=== PATIENT | male | born 1970 | race Caucasian/White ===

== ENCOUNTER 2017-05-29 10:09 | Inpatient (IN) | payer MEDICAID ==
[2017-05-28 11:42] LABS: BASOPHILS % (AUTO) 0.5 % (0-1); EOSINOPHILS # (AUTO) 0.2 X10'3 (0-0.9); EOSINOPHILS % (AUTO) 3.9 % (0-6); LYMPHOCYTES # (AUTO) 1.5 X10'3 (1.1-4.8); LYMPHOCYTES % (AUTO) 25.8 % (21-51); MEAN CORPUSCULAR HEMOGLOBIN 35.2 PG (27.0-31.0); MEAN CORPUSCULAR HGB CONC 35.6 % (33.0-36.5); MEAN CORPUSCULAR VOLUME 98.9 FL (78-98); MEAN PLATELET VOLUME 8.4 FL (7.4-10.4); MONOCYTES # (AUTO) 0.4 X10'3 (0-0.9); MONOCYTES % (AUTO) 6.7 % (2-12); NEUTROPHILS # (AUTO) 3.7 X10'3 (1.8-7.7); NEUTROPHILS % (AUTO) 63.1 % (42-75); PRE OP HEMATOCRIT 41.4 % (42.0-52.0); PRE OP HEMOGLOBIN 14.7 g/dL (14.0-17.9); PRE OP PLATELET COUNT 225 X10'3 (140-440); RED BLOOD COUNT 4.19 X10'6 (4.70-6.10); RED CELL DISTRIBUTION WIDTH 12.9 % (11.5-14.5)
[2017-05-28 11:53] LABS: PRE OP INR 0.9 INR; PRE OP PROTIME 9.8 SECONDS (9.0-12.0)
[2017-05-28 11:54] LABS: CLARITY,URINE SLIGHTLY CLOUDY (Clear); COLOR,URINE YELLOW (Yellow); GLUCOSE, URINE NEGATIVE (Neg); KETONES,URINE NEGATIVE (Neg); LEUKOCYTE ESTERASE ,URINE NEGATIVE (Neg); NITRITES, URINE NEGATIVE (Neg); OCCULT BLOOD,URINE NEGATIVE (Neg); PH,URINE 5.5 (4.8-8.0); PROTEIN,URINE NEGATIVE (Neg); UROBILINOGEN,URINE 0.2 E.U/dL (0.2-1.0)
[2017-05-28 11:55] LABS: ALBUMIN 3.9 G/DL (3.4-5.0); ALBUMIN/GLOBULIN RATIO 0.9 (1.1-1.5); ALKALINE PHOSPHATASE 104 IU/L (46-116); BLOOD UREA NITROGEN 10 MG/DL (7-18); BUN/CREATININE RATIO 9.3 (5.4-32.0); CALCIUM 9.5 MG/DL (8.5-10.1); CHLORIDE 102 MMOL/L (99-107); CREATININE 1.08 MG/DL (0.60-1.10); PRE OP ANION GAP 12 (8-16); PRE OP AST 52 U/L (10-37); PRE OP BILIRUB, TOTAL 0.2 MG/DL (0.0-1.0); PRE OP GLUCOSE 98 MG/DL (70-104); PRE OP POTASSIUM 4.4 MMOL/L (3.4-5.1); PRE OP SODIUM 139 MMOL/L (135-145); TOTAL CARBON DIOXIDE 25.4 MMOL/L (24-32); TOTAL PROTEIN 8.1 G/DL (6.4-8.2); eGFR 73 ML/MIN
[2017-05-28 11:57] LABS: UA COLLECTION TYPE CLN CATCH MIDSTREAM
[2017-05-28 11:59] LABS: PRE OP ALT 110 U/L (30-65)
[2017-05-28 12:02] LABS: BACTERIA,URINE NONE SEEN /HPF (Neg); HYALINE CASTS 0-3 /LPF (NEGATIVE); MUCUS STRANDS MODERATE /LPF (Neg); RBC,URINE 0-2 /HPF (0-2); SQUAMOUS EPITHELIAL CELL,UR FEW /LPF (FEW); WBC,URINE 0-4 /HPF (0-4)
[2017-05-28 12:03] LABS: SPERM FEW /HPF (NEGATIVE)
[2017-05-29] VITALS (11 sets, daily range): BP systolic 118–153; BP diastolic 55–98
[~2017-05-29] VITALS: Ht 190.5 cm; Wt 117.9 kg
[~2017-05-29 10:09] MED LIST: DULO60CA64 PO; HYDR-3972 PO; NORMAL SALINE IV ONE; OMEP20CA10 PO; TRANEXAMIC ACID IV ONE; VANCOMYCIN INJ 1000 MG in NORMAL SALINE 250ml IV.SOLN IV ONE; ceFAZolin inj. 2,000 MG in dextrose 5%-water 100 ML IV ONE; famotidine 20mg tablet PO ONE; ringers solution, lacted 1,000 ML IV SCH
[2017-05-29] MEDS ORDERED: LIDOcaine 1% (10mg/ml) 2ml vial ONE (11:24)
[2017-05-29] MEDS ORDERED: ringers solution, lacted 1,000 ML IV SCH (13:41)
[2017-05-29] MEDS ORDERED: proCHLORperazine 10 MG/2 ml inj IV PRN (13:45)
[2017-05-29] MEDS ORDERED: meperidine/PF 50mg/ml syringe IV PRN ×3 (13:45)
[2017-05-29] MEDS ORDERED: morphine 4 MG/ML inj SYRINge IV PRN ×2 (13:45)
[2017-05-29] MEDS ORDERED: ondansetron/PF 4mg/2ml inj IV PRN ×3 (13:45→19:55)
[2017-05-29] MEDS ORDERED: HYDROcodone/acetaminophen 10/325mg tab PO ONE (13:50)
[2017-05-29] MEDS ORDERED: ROPIVAcaine 0.5% (5mg/ml) 30ml vial ONE ×2 (13:51→13:57)
[2017-05-29] MEDS ORDERED: ketorolac trometh. 30mg/ml inj. ONE (13:51)
[2017-05-29] MEDS ORDERED: vancomycin 1,000mg inj ONE (14:43)
[2017-05-29] MEDS ORDERED: MIDAZolam 1mg/ml 10ml vial ONE (16:08)
[2017-05-29] MEDS ORDERED: fentaNYL/PF 50MCG/1 ML 2ML syringe ONE (16:08)
[2017-05-29] MEDS ORDERED: morphine /PF 1mg/ml 10ml inj. ONE (16:13)
[2017-05-29] MEDS ORDERED: naloxone 2mg/2ml inj 2 MG in normal saline 500ml IV soln 500 ML IV PRN (17:32)
[2017-05-29] MEDS ORDERED: diphenhydrAMINE 50 mg/ml inj IV PRN (17:35)
[2017-05-29] MEDS ORDERED: propofol inj 20 ML IV ONE ×2 (18:09)
[2017-05-29] MEDS ORDERED: diphenhydrAMINE 50 mg/ml inj ONE (18:41)
[2017-05-29] MEDS ORDERED: acetaminophen 325mg tablet PO PRN (19:55)
[2017-05-29] MEDS ORDERED: bisacodyl 10mg suppository rectal RC PRN (19:55)
[2017-05-29] MEDS ORDERED: diphenhydrAMINE 25mg capsule PO PRN ×2 (19:55)
[2017-05-29] MEDS ORDERED: HYDROmorphone inj. 0.5 MG/0.5 ML DISP.SYRIN IV PRN (19:55)
[2017-05-29] MEDS ORDERED: magnesium hydroxide 30ml (MOM) UD suspension PO PRN (19:55)
[2017-05-29] MEDS ORDERED: MIDAZolam 5mg/5ml vial ONE (19:56)
[2017-05-29] MEDS ORDERED: vancomycin/NS 1 GM ADD-VANTAGE 250 ML IV SCH (20:00)
[2017-05-29] MEDS: sennosides 8.6mg tablet PO SCH (21:00)
[2017-05-29] MEDS: acetaminophen 325mg tablet PO SCH (21:27)
[2017-05-29] MEDS: gabapentin 300mg capsule PO SCH (21:27)
[2017-05-29] MEDS: ketorolac tromethamine 15mg/ml inj. IV SCH (21:28)
[2017-05-29] MEDS ORDERED: NORMAL SALINE IV ONE (23:00)
[2017-05-29] MEDS ORDERED: TRANEXAMIC ACID IV ONE (23:00)
[2017-05-29] MEDS: oxyCODONE IR 5mg (immed. release) tablet PO PRN (23:17)
[2017-05-30] VITALS (8 sets, daily range): BP systolic 116–144; BP diastolic 67–95
[2017-05-30] MEDS: potassium cl 20mEq in 1/2 NS 1,000 ML IV SCH ×4 (00:07→19:35)
[2017-05-30] MEDS: ceFAZolin 1GM/D5W- ADD-VANTAGE 50 ML IV SCH ×2 (00:07→09:16)
[2017-05-30] MEDS: ketorolac tromethamine 15mg/ml inj. IV SCH ×4 (02:10→20:36)
[2017-05-30] MEDS: acetaminophen 325mg tablet PO SCH ×4 (02:11→20:37)
[2017-05-30] MEDS: oxyCODONE IR 5mg (immed. release) tablet PO PRN ×6 (05:02→22:25)
[2017-05-30 06:25] LABS: ANION GAP 8 (8-16); CHLORIDE 103 MMOL/L (99-107); POTASSIUM 4.7 MMOL/L (3.5-5.1); SODIUM 137 MMOL/L (135-145); TOTAL CARBON DIOXIDE 25.9 MMOL/L (24-32)
[2017-05-30 06:33] LABS: BASOPHILS % (AUTO) 0.1 % (0-1); EOSINOPHILS % (AUTO) 0.1 % (0-6); HEMATOCRIT 33.3 % (42.0-52.0); HEMOGLOBIN 11.9 g/dl (14.0-17.9); LYMPHOCYTES # (AUTO) 0.7 X10'3 (1.1-4.8); LYMPHOCYTES % (AUTO) 7.1 % (21-51); MEAN CORPUSCULAR HGB CONC 35.8 % (33.0-36.5); MEAN CORPUSCULAR VOLUME 100.4 FL (78-98); MEAN PLATELET VOLUME 9.3 FL (7.4-10.4); MONOCYTES # (AUTO) 0.5 X10'3 (0-0.9); MONOCYTES % (AUTO) 5.4 % (2-12); NEUTROPHILS # (AUTO) 8.9 X10'3 (1.8-7.7); NEUTROPHILS % (AUTO) 87.3 % (42-75); PLATELET COUNT 190 X10'3 (140-440); RED BLOOD COUNT 3.31 X10'6 (4.70-6.10); RED CELL DISTRIBUTION WIDTH 11.9 % (11.5-14.5); WHITE BLOOD COUNT 10.1 X10'3 (4.5-11.0)
[2017-05-30] MEDS: aspirin 325mg tablet PO SCH (09:13)
[2017-05-30] MEDS: duloxetine 30mg CAPSULE.DR PO SCH (09:14)
[2017-05-30] MEDS: pantoprazole 40mg Tablet.DR PO SCH (09:16)
[2017-05-30] MEDS: gabapentin 300mg capsule PO SCH ×3 (09:16→20:37)
[2017-05-30] MEDS: sennosides 8.6mg tablet PO SCH (17:37)
[2017-05-30] MEDS ORDERED: loperamide 2mg capsule PO PRN (18:50)
[2017-05-31] MEDS: ketorolac tromethamine 15mg/ml inj. IV SCH (02:00)
[2017-05-31] MEDS: acetaminophen 325mg tablet PO SCH ×3 (02:00→14:00)
[2017-05-31] MEDS: oxyCODONE IR 5mg (immed. release) tablet PO PRN ×2 (02:37→05:57)
[2017-05-31] MEDS: potassium cl 20mEq in 1/2 NS 1,000 ML IV SCH ×2 (03:52→11:52)
[2017-05-31 05:00] VITALS: BP 115/66
[2017-05-31 06:47] LABS: BASOPHILS % (AUTO) 0.4 % (0-1); EOSINOPHILS # (AUTO) 0.2 X10'3 (0-0.9); EOSINOPHILS % (AUTO) 2.4 % (0-6); HEMOGLOBIN 9.9 g/dl (14.0-17.9); LYMPHOCYTES # (AUTO) 1.9 X10'3 (1.1-4.8); LYMPHOCYTES % (AUTO) 29.5 % (21-51); MEAN CORPUSCULAR HEMOGLOBIN 35.8 PG (27.0-31.0); MEAN CORPUSCULAR HGB CONC 35.4 % (33.0-36.5); MEAN CORPUSCULAR VOLUME 101.1 FL (78-98); MEAN PLATELET VOLUME 8.9 FL (7.4-10.4); MONOCYTES # (AUTO) 0.6 X10'3 (0-0.9); MONOCYTES % (AUTO) 8.8 % (2-12); NEUTROPHILS # (AUTO) 3.8 X10'3 (1.8-7.7); NEUTROPHILS % (AUTO) 58.9 % (42-75); PLATELET COUNT 160 X10'3 (140-440); RED BLOOD COUNT 2.77 X10'6 (4.70-6.10); RED CELL DISTRIBUTION WIDTH 12.7 % (11.5-14.5); WHITE BLOOD COUNT 6.4 X10'3 (4.5-11.0)
[2017-05-31] MEDS: HYDROmorphone inj. 0.5 MG/0.5 ML DISP.SYRIN IV PRN ×4 (08:19→20:18)
[2017-05-31] MEDS: duloxetine 30mg CAPSULE.DR PO SCH (09:36)
[2017-05-31] MEDS: aspirin 325mg tablet PO SCH (09:37)
[2017-05-31] MEDS: gabapentin 300mg capsule PO SCH ×3 (09:37→20:17)
[2017-05-31] MEDS: pantoprazole 40mg Tablet.DR PO SCH (09:37)
[2017-05-31] MEDS: celeCOXIB 100mg capsule PO SCH ×3 (09:37→20:17)
[2017-05-31] MEDS: cyclobenzaprine 10mg tablet PO PRN ×3 (09:38→22:08)
[2017-05-31] MEDS: oxyCODONE/APAP 10/325mg tablet PO PRN ×4 (09:38→22:09)
[2017-05-31 10:00] VITALS: BP 142/84
[2017-05-31 18:00] VITALS: BP 113/73
[2017-05-31] MEDS ORDERED: acetaminophen 325mg tablet PO PRN (19:55)
[2017-05-31] MEDS: sennosides 8.6mg tablet PO SCH (21:00)
[2017-05-31 22:00] VITALS: BP 138/79
[2017-06-01 05:00] VITALS: BP 139/75
[2017-06-01] MEDS: oxyCODONE/APAP 10/325mg tablet PO PRN ×3 (05:18→12:18)
[2017-06-01] MEDS: cyclobenzaprine 10mg tablet PO PRN ×2 (05:18→11:06)
[2017-06-01 05:48] LABS: BASOPHILS % (AUTO) 0.3 % (0-1); EOSINOPHILS # (AUTO) 0.2 X10'3 (0-0.9); EOSINOPHILS % (AUTO) 2.8 % (0-6); LYMPHOCYTES # (AUTO) 1.4 X10'3 (1.1-4.8); LYMPHOCYTES % (AUTO) 18.8 % (21-51); MEAN CORPUSCULAR HEMOGLOBIN 35.5 PG (27.0-31.0); MEAN CORPUSCULAR HGB CONC 35.6 % (33.0-36.5); MEAN CORPUSCULAR VOLUME 99.7 FL (78-98); MEAN PLATELET VOLUME 8.7 FL (7.4-10.4); MONOCYTES # (AUTO) 0.7 X10'3 (0-0.9); NEUTROPHILS % (AUTO) 69.1 % (42-75); PLATELET COUNT 174 X10'3 (140-440); RED BLOOD COUNT 2.81 X10'6 (4.70-6.10); RED CELL DISTRIBUTION WIDTH 13.2 % (11.5-14.5); WHITE BLOOD COUNT 7.3 X10'3 (4.5-11.0)
[2017-06-01] MEDS ORDERED: ASPI-1 PO (07:54)
[2017-06-01] MEDS ORDERED: WALKERFR (07:55)
[2017-06-01 08:00] VITALS: BP 118/73
[2017-06-01] MEDS: aspirin 325mg tablet PO SCH (08:48)
[2017-06-01] MEDS: celeCOXIB 100mg capsule PO SCH (08:48)
[2017-06-01] MEDS: duloxetine 30mg CAPSULE.DR PO SCH (08:48)
[2017-06-01] MEDS: gabapentin 300mg capsule PO SCH ×2 (08:48→12:13)
[2017-06-01] MEDS: pantoprazole 40mg Tablet.DR PO SCH (08:48)
== END 2017-06-01 12:00 | disposition home or self-care (01) | DRG 302 ==
LOC: PAS IN 11:02 → EDSTATUS 11:15 → ORTHO 4S 20:30
PROVIDERS: ADMIT Orthopaedic Surgery; ATTEND Orthopaedic Surgery
PROC: 3E0T3BZ Introduction of Anesthetic Agent into Peripheral Nerves and Plexi, Percutaneous Approach (ICD-10-PCS; 2017-05-29)
PROC: 8E0YXBZ Computer Assisted Procedure of Lower Extremity (ICD-10-PCS; 2017-05-29)
PROC: 8E0Y0CZ Robotic Assisted Procedure of Lower Extremity, Open Approach (ICD-10-PCS; 2017-05-29)
PROC: 0SRC0J9 Replacement of Right Knee Joint with Synthetic Substitute, Cemented, Open Approach (ICD-10-PCS; principal; 2017-05-29 16:07)
DX: M17.11 Unilateral primary osteoarthritis, right knee (principal); D62 Acute posthemorrhagic anemia; K21.9 Gastro-esophageal reflux disease without esophagitis; M25.761 Osteophyte, right knee; F32.9 Major depressive disorder, single episode, unspecified; Z79.899 Other long term (current) drug therapy
CPT/HCPCS: 36415; 80051; 80053; 81001; 85025; 85610; 85730; 87070; 97110; 97116; 97162; 97530; A6258; A6446; A6449; A6455; A7000; C1713; C1758; C1776; J0690; J1170; J1200; J1885; J2250; J2274; J2704; J2795; J3010; J3370; J3490; J7030; J7060; J7120

== ENCOUNTER 2017-10-09 05:31 | Inpatient (IN) | payer MEDICAID ==
[2017-10-04 15:10] LABS: BASOPHILS % (AUTO) 0.6 % (0-1); EOSINOPHILS # (AUTO) 0.1 X10'3 (0-0.9); EOSINOPHILS % (AUTO) 1.8 % (0-6); LYMPHOCYTES # (AUTO) 1.3 X10'3 (1.1-4.8); MEAN CORPUSCULAR HEMOGLOBIN 34.3 PG (27.0-31.0); MEAN CORPUSCULAR HGB CONC 34.9 % (33.0-36.5); MEAN CORPUSCULAR VOLUME 98.4 FL (78-98); MEAN PLATELET VOLUME 8.8 FL (7.4-10.4); MONOCYTES # (AUTO) 0.3 X10'3 (0-0.9); MONOCYTES % (AUTO) 5.8 % (2-12); NEUTROPHILS # (AUTO) 3.4 X10'3 (1.8-7.7); NEUTROPHILS % (AUTO) 65.8 % (42-75); PRE OP HEMATOCRIT 43.6 % (42.0-52.0); PRE OP HEMOGLOBIN 15.2 g/dL (14.0-17.9); PRE OP PLATELET COUNT 249 X10'3 (140-440); RED BLOOD COUNT 4.43 X10'6 (4.70-6.10); RED CELL DISTRIBUTION WIDTH 14.3 % (11.5-14.5)
[2017-10-04 15:19] LABS: PRE OP INR 0.9 INR; PRE OP PROTIME 9.7 SECONDS (9.0-12.0)
[2017-10-04 15:24] LABS: ALKALINE PHOSPHATASE 133 IU/L (46-116); BLOOD UREA NITROGEN 9 MG/DL (7-18); BUN/CREATININE RATIO 8.8 (5.4-32.0); CALCIUM 9.2 MG/DL (8.5-10.1); CHLORIDE 102 MMOL/L (99-107); CREATININE 1.02 MG/DL (0.60-1.10); PRE OP ALT 74 U/L (30-65); PRE OP ANION GAP 12 (8-16); PRE OP AST 34 U/L (10-37); PRE OP BILIRUB, TOTAL 0.3 MG/DL (0.0-1.0); PRE OP GLUCOSE 106 MG/DL (70-104); PRE OP POTASSIUM 4.1 MMOL/L (3.4-5.1); PRE OP SODIUM 136 MMOL/L (135-145); TOTAL CARBON DIOXIDE 22.4 MMOL/L (24-32); eGFR 78 ML/MIN
[2017-10-09] VITALS (21 sets, daily range): BP systolic 127–164; BP diastolic 62–110
[~2017-10-09] VITALS: Ht 190.5 cm; Wt 117.9 kg
[~2017-10-09 05:31] MED LIST changes: -NORMAL SALINE IV ONE; -TRANEXAMIC ACID IV ONE; -VANCOMYCIN INJ 1000 MG in NORMAL SALINE 250ml IV.SOLN IV ONE; -ceFAZolin inj. 2,000 MG in dextrose 5%-water 100 ML IV ONE
[2017-10-09] MEDS ORDERED: LIDOcaine 1% (10mg/ml) 2ml vial ONE (05:47)
[2017-10-09] MEDS ORDERED: triamcinolone acetonide 40mg/ml inj ONE (06:37)
[2017-10-09] MEDS ORDERED: BUPIVAcaine/PF 2.5mg/ml (0.25%) 10ml vial ONE (06:38)
[2017-10-09] MEDS ORDERED: sevoflurane 250ml liquid IH ONE (07:16)
[2017-10-09] MEDS ORDERED: propofol inj 20 ML IV ONE ×2 (07:18)
[2017-10-09] MEDS ORDERED: midazolam 2 mg/2 ml injection ONE (07:18)
[2017-10-09] MEDS ORDERED: fentaNYL/PF 50MCG/1 ML 2ML syringe ONE (07:18)
[2017-10-09] MEDS ORDERED: oxyCODONE IR 5mg (immed. release) tablet PO PRN ×2 (07:55)
[2017-10-09] MEDS ORDERED: diphenhydrAMINE 25mg capsule PO PRN ×2 (07:55)
[2017-10-09] MEDS ORDERED: magnesium hydroxide 30ml (MOM) UD suspension PO PRN (07:55)
[2017-10-09] MEDS ORDERED: HYDROmorphone 1 mg/ml syringe IV PRN ×2 (07:55)
[2017-10-09] MEDS ORDERED: ondansetron/PF 4mg/2ml inj IV PRN ×2 (07:55→08:30)
[2017-10-09] MEDS ORDERED: acetaminophen 325mg tablet PO PRN (07:55)
[2017-10-09] MEDS ORDERED: bisacodyl 10mg suppository rectal RC PRN (07:55)
[2017-10-09] MEDS: acetaminophen 325mg tablet PO SCH ×3 (08:00→20:03)
[2017-10-09] MEDS: gabapentin 300mg capsule PO SCH ×3 (08:00→20:03)
[2017-10-09] MEDS ORDERED: ROPIVAcaine 0.5% (5mg/ml) 30ml vial ONE (08:16)
[2017-10-09] MEDS ORDERED: meperidine/PF 25mg/ml syringe ONE ×2 (08:29→08:38)
[2017-10-09] MEDS ORDERED: ringers solution, lacted 1,000 ML IV SCH (08:30)
[2017-10-09] MEDS ORDERED: morphine 4 MG/ML inj SYRINge IV PRN ×2 (08:30)
[2017-10-09] MEDS ORDERED: meperidine/PF 25mg/ml syringe IV PRN ×2 (08:30)
[2017-10-09] MEDS ORDERED: proCHLORperazine 10 MG/2 ml inj IV PRN (08:30)
[2017-10-09] MEDS: aspirin 325mg tablet PO SCH (08:30)
[2017-10-09] MEDS: meperidine/PF 25mg/ml syringe IV PRN ×3 (08:44→13:15)
[2017-10-09] MEDS: ketorolac tromethamine 15mg/ml inj. IV SCH ×3 (09:07→13:46)
[2017-10-09] MEDS ORDERED: NORMAL SALINE IJ SCH (09:25)
[2017-10-09] MEDS: NORMAL SALINE IJ SCH (09:25)
[2017-10-09] MEDS: ROPIVACAINE IJ SCH (09:25)
[2017-10-09] MEDS ORDERED: ROPIVACAINE IJ SCH (09:25)
[2017-10-09] MEDS: oxyCODONE IR 5mg (immed. release) tablet PO PRN ×5 (11:02→23:01)
[2017-10-09] MEDS: sennosides 8.6mg tablet PO SCH (20:03)
[2017-10-09] MEDS: morphine 2 MG/ML inj. syringe IV PRN (22:13)
[2017-10-10 02:00] VITALS: BP 114/69
[2017-10-10] MEDS: ketorolac tromethamine 15mg/ml inj. IV SCH (02:11)
[2017-10-10] MEDS: acetaminophen 325mg tablet PO SCH ×4 (02:11→19:49)
[2017-10-10] MEDS: oxyCODONE IR 5mg (immed. release) tablet PO PRN ×7 (02:12→21:38)
[2017-10-10 05:00] VITALS: BP 134/86
[2017-10-10 05:28] LABS: BASOPHILS % (AUTO) 0.1 % (0-1); EOSINOPHILS # (AUTO) 0.1 X10'3 (0-0.9); EOSINOPHILS % (AUTO) 1.1 % (0-6); HEMATOCRIT 37.6 % (42.0-52.0); HEMOGLOBIN 13.2 g/dl (14.0-17.9); LYMPHOCYTES # (AUTO) 0.8 X10'3 (1.1-4.8); LYMPHOCYTES % (AUTO) 9.5 % (21-51); MEAN CORPUSCULAR HEMOGLOBIN 34.7 PG (27.0-31.0); MEAN PLATELET VOLUME 8.9 FL (7.4-10.4); MONOCYTES # (AUTO) 0.5 X10'3 (0-0.9); MONOCYTES % (AUTO) 6.3 % (2-12); NEUTROPHILS # (AUTO) 6.8 X10'3 (1.8-7.7); PLATELET COUNT 215 X10'3 (140-440); RED CELL DISTRIBUTION WIDTH 14.1 % (11.5-14.5); WHITE BLOOD COUNT 8.2 X10'3 (4.5-11.0)
[2017-10-10 05:44] LABS: ANION GAP 9 (8-16); CHLORIDE 102 MMOL/L (99-107); POTASSIUM 4.4 MMOL/L (3.5-5.1); SODIUM 134 MMOL/L (135-145); TOTAL CARBON DIOXIDE 22.8 MMOL/L (24-32)
[2017-10-10] MEDS: pantoprazole 40mg Tablet.DR PO SCH (08:27)
[2017-10-10] MEDS: aspirin 325mg tablet PO SCH (08:27)
[2017-10-10] MEDS: gabapentin 300mg capsule PO SCH ×3 (08:27→19:48)
[2017-10-10] MEDS: duloxetine 30mg CAPSULE.DR PO SCH (08:27)
[2017-10-10 10:00] VITALS: BP 132/79
[2017-10-10 14:00] VITALS: BP 128/74
[2017-10-10] MEDS: NORMAL SALINE IJ SCH (17:09)
[2017-10-10] MEDS: ROPIVACAINE IJ SCH (17:09)
[2017-10-10 18:00] VITALS: BP 135/77
[2017-10-10] MEDS: celeCOXIB 100mg capsule PO SCH (19:49)
[2017-10-10] MEDS: sennosides 8.6mg tablet PO SCH (19:49)
[2017-10-10] MEDS: morphine 2 MG/ML inj. syringe IV PRN (19:50)
[2017-10-10 22:00] VITALS: BP 144/88
[2017-10-10] MEDS ORDERED: oxyCODONE IR 5mg (immed. release) tablet PO ONE (22:15)
[2017-10-11] MEDS: acetaminophen 325mg tablet PO SCH (01:35)
[2017-10-11] MEDS: oxyCODONE IR 5mg (immed. release) tablet PO PRN ×4 (01:35→12:53)
[2017-10-11 05:45] LABS: BASOPHILS % (AUTO) 0.3 % (0-1); EOSINOPHILS # (AUTO) 0.1 X10'3 (0-0.9); EOSINOPHILS % (AUTO) 1.2 % (0-6); HEMATOCRIT 37.7 % (42.0-52.0); HEMOGLOBIN 12.7 g/dl (14.0-17.9); LYMPHOCYTES # (AUTO) 1.8 X10'3 (1.1-4.8); LYMPHOCYTES % (AUTO) 23.6 % (21-51); MEAN CORPUSCULAR HEMOGLOBIN 33.7 PG (27.0-31.0); MEAN CORPUSCULAR HGB CONC 33.7 % (33.0-36.5); MEAN CORPUSCULAR VOLUME 99.8 FL (78-98); MEAN PLATELET VOLUME 9.3 FL (7.4-10.4); MONOCYTES # (AUTO) 0.5 X10'3 (0-0.9); MONOCYTES % (AUTO) 6.8 % (2-12); NEUTROPHILS # (AUTO) 5.1 X10'3 (1.8-7.7); NEUTROPHILS % (AUTO) 68.1 % (42-75); PLATELET COUNT 211 X10'3 (140-440); RED BLOOD COUNT 3.78 X10'6 (4.70-6.10); RED CELL DISTRIBUTION WIDTH 13.7 % (11.5-14.5); WHITE BLOOD COUNT 7.4 X10'3 (4.5-11.0)
[2017-10-11 06:00] VITALS: BP 131/84
[2017-10-11] MEDS: pantoprazole 40mg Tablet.DR PO SCH (07:55)
[2017-10-11] MEDS ORDERED: acetaminophen 325mg tablet PO PRN (07:55)
[2017-10-11] MEDS: gabapentin 300mg capsule PO SCH ×2 (07:56→12:53)
[2017-10-11] MEDS: celeCOXIB 100mg capsule PO SCH (07:56)
[2017-10-11] MEDS: duloxetine 30mg CAPSULE.DR PO SCH (07:57)
[2017-10-11] MEDS: aspirin 325mg tablet PO SCH (07:57)
[2017-10-11] MEDS ORDERED: cpm (08:23)
[2017-10-11 10:00] VITALS: BP 152/92
== END 2017-10-11 15:45 | disposition home or self-care (01) | DRG 351 ==
LOC: PAS 05:31 → OBSVTOIN 07:57 → ORTHO 4S 07:57
PROVIDERS: ADMIT Orthopaedic Surgery; ATTEND Orthopaedic Surgery
PROC: 3E0T3BZ Introduction of Anesthetic Agent into Peripheral Nerves and Plexi, Percutaneous Approach (ICD-10-PCS; 2017-10-09)
PROC: 3E0U33Z Introduction of Anti-inflammatory into Joints, Percutaneous Approach (ICD-10-PCS; 2017-10-09)
PROC: 3E0U3BZ Introduction of Anesthetic Agent into Joints, Percutaneous Approach (ICD-10-PCS; 2017-10-09)
PROC: 0SWCXJZ Revision of Synthetic Substitute in Right Knee Joint, External Approach (ICD-10-PCS; principal; 2017-10-09 07:16)
DX: M24.661 Ankylosis, right knee (principal); E66.9 Obesity, unspecified; F32.9 Major depressive disorder, single episode, unspecified; G89.29 Other chronic pain; K21.9 Gastro-esophageal reflux disease without esophagitis; Z47.1 Aftercare following joint replacement surgery; Z68.32 Body mass index [BMI] 32.0-32.9, adult; Z79.899 Other long term (current) drug therapy
CPT/HCPCS: 36415; 80051; 80053; 85025; 85610; 85730; 97116; 97162; 97530; A6258; A6449; J1170; J1885; J2175; J2250; J2270; J2704; J2795; J3010; J3301; J3490; J7120

== ENCOUNTER 2018-06-04 05:59 | Inpatient (IN) | payer MEDICAID ==
[2018-05-28 14:06] LABS: BASOPHILS # (AUTO) 0.1 X10'3 (0-0.2); BASOPHILS % (AUTO) 2.1 % (0-1); EOSINOPHILS # (AUTO) 0.1 X10'3 (0-0.9); EOSINOPHILS % (AUTO) 1.7 % (0-6); LYMPHOCYTES # (AUTO) 1.4 X10'3 (1.1-4.8); LYMPHOCYTES % (AUTO) 31.1 % (21-51); MEAN CORPUSCULAR HEMOGLOBIN 35.2 PG (27.0-31.0); MEAN CORPUSCULAR VOLUME 103.5 FL (78-98); MEAN PLATELET VOLUME 7.8 FL (7.4-10.4); MONOCYTES # (AUTO) 0.5 X10'3 (0-0.9); MONOCYTES % (AUTO) 11.6 % (2-12); NEUTROPHILS # (AUTO) 2.4 X10'3 (1.8-7.7); NEUTROPHILS % (AUTO) 53.5 % (42-75); PRE OP HEMATOCRIT 42.9 % (42.0-52.0); PRE OP HEMOGLOBIN 14.6 g/dL (14.0-17.9); PRE OP PLATELET COUNT 313 X10'3 (140-440); RED BLOOD COUNT 4.14 X10'6 (4.70-6.10); RED CELL DISTRIBUTION WIDTH 13.3 % (11.5-14.5)
[2018-05-28 14:22] LABS: ALBUMIN 3.5 G/DL (3.4-5.0); ALBUMIN/GLOBULIN RATIO 0.9 (1.1-1.5); ALKALINE PHOSPHATASE 103 IU/L (46-116); BLOOD UREA NITROGEN 8 MG/DL (7-18); CALCIUM 9.5 MG/DL (8.5-10.1); CHLORIDE 104 MMOL/L (99-107); CREATININE 1.15 MG/DL (0.60-1.10); PRE OP ALT 67 U/L (30-65); PRE OP ANION GAP 8 (8-16); PRE OP AST 30 U/L (10-37); PRE OP BILIRUB, TOTAL 0.2 MG/DL (0.0-1.0); PRE OP GLUCOSE 109 MG/DL (70-104); PRE OP POTASSIUM 5.2 MMOL/L (3.4-5.1); PRE OP SODIUM 139 MMOL/L (135-145); TOTAL CARBON DIOXIDE 27.4 MMOL/L (24-32); TOTAL PROTEIN 7.5 G/DL (6.4-8.2); eGFR 67 ML/MIN
[2018-06-04] VITALS (20 sets, daily range): BP systolic 118–170; BP diastolic 67–93
[~2018-06-04] VITALS: Ht 190.5 cm; Wt 119.0 kg
[~2018-06-04 05:59] MED LIST changes: +AMLO5TAB16 PO; +ceFAZolin inj. 3,000 MG in normal saline 100ml IV soln 100 ML IV ONE; +vancomycin inj 1,500 MG in normal saline 300ml IV soln IV ONE
[2018-06-04] MEDS ORDERED: LIDOcaine 1% (10mg/ml) 2ml vial ONE (06:24)
[2018-06-04] MEDS ORDERED: tetracaine 1% (10mg/ml) pres. free inj. ONE (07:29)
[2018-06-04] MEDS ORDERED: tranexamic acid inj. 1,200 MG in normal saline 100ml IV soln 100 ML IV ONE ×3 (07:29→15:00)
[2018-06-04] MEDS ORDERED: morphine /PF 1mg/ml 10ml inj. ONE (07:34)
[2018-06-04] MEDS ORDERED: MIDAZolam 5mg/5ml vial ONE (07:34)
[2018-06-04] MEDS ORDERED: fentaNYL/PF 50MCG/1 ML 2ML syringe ONE ×2 (07:34→08:40)
[2018-06-04] MEDS ORDERED: ROPIVAcaine 0.5% (5mg/ml) 30ml vial ONE ×3 (07:36→10:38)
[2018-06-04] MEDS ORDERED: ketorolac trometh. 30mg/ml inj. ONE (07:36)
[2018-06-04 07:46] LABS: ISTAT ANION GAP 13 (8-12); ISTAT BUN 8 mg/dL (6-19); ISTAT CL 100 mmol/L (99-107); ISTAT CREATININE 0.8 mg/dL (0.8-1.3); ISTAT GLUCOSE 98 mg/dL (70-104); ISTAT Hct 47 %PCV (42-52); ISTAT K 4.4 mmol/L (3.5-5.1); ISTAT NA 139 mmol/L (135-145); ISTAT TOTAL CO2 26 mmol/L (24-32); ISTAT eGFR > 90 ML/MIN
[2018-06-04] MEDS ORDERED: sevoflurane 250ml liquid IH ONE (08:00)
[2018-06-04] MEDS ORDERED: propofol 10mg/ml 20ml vial IV ONE (08:00)
[2018-06-04] MEDS ORDERED: succinylcholine 20mg/ml inj IV ONE ×2 (08:00→09:00)
[2018-06-04] MEDS ORDERED: BUPIVAcaine/PF 7.5mg/ml (0.75%) 10ml vial ONE (09:14)
[2018-06-04] MEDS ORDERED: ringers solution, lacted 1,000 ML IV SCH (10:21)
[2018-06-04] MEDS ORDERED: naloxone 2mg/2ml inj 2 MG in normal saline 500ml IV soln 500 ML IV PRN (10:21)
[2018-06-04] MEDS ORDERED: ondansetron/PF 4mg/2ml inj IV PRN ×3 (10:25→11:55)
[2018-06-04] MEDS ORDERED: proCHLORperazine 10 MG/2 ml inj IV PRN (10:25)
[2018-06-04] MEDS ORDERED: morphine 4 MG/ML inj SYRINge IV PRN ×2 (10:25)
[2018-06-04] MEDS ORDERED: meperidine/PF 25mg/ml syringe IV PRN ×2 (10:25)
[2018-06-04] MEDS ORDERED: diphenhydrAMINE 50 mg/ml inj IV PRN (10:25)
[2018-06-04] MEDS ORDERED: dexamethasone sod phosphate 4mg/ml inj. ONE (10:38)
[2018-06-04] MEDS ORDERED: propofol inj 20 ML IV ONE (10:38)
[2018-06-04] MEDS ORDERED: diphenhydrAMINE 50 mg/ml inj ONE (10:38)
[2018-06-04] MEDS ORDERED: ondansetron/PF 4mg/2ml inj ONE (10:38)
[2018-06-04] MEDS ORDERED: furosemide 40mg/4ml inj ONE (10:58)
[2018-06-04] MEDS ORDERED: oxyCODONE IR 5mg (immed. release) tablet PO PRN ×2 (11:55→16:55)
[2018-06-04] MEDS ORDERED: diphenhydrAMINE 25mg capsule PO PRN ×2 (11:55)
[2018-06-04] MEDS ORDERED: magnesium hydroxide 30ml (MOM) UD suspension PO PRN (11:55)
[2018-06-04] MEDS ORDERED: HYDROmorphone inj. 0.5 MG/0.5 ML DISP.SYRIN IV PRN (11:55)
[2018-06-04] MEDS ORDERED: HYDROcodone/acetaminophen 10/325mg tab PO PRN (11:55)
[2018-06-04] MEDS ORDERED: bisacodyl 10mg suppository rectal RC PRN (11:55)
[2018-06-04] MEDS ORDERED: acetaminophen 325mg tablet PO PRN (11:55)
--- NOTE | 2018-06-04 12:17 | NUR ---
Received from OR via , accompanied by Anesthesiologist DR. WALTON and report given by Anesthesiolgist.PATIENT ARRIVED VIA VIA ORTHO BED,A&OX4, SENSATION NOTED AT AT L1, DRESSING TO RIGHT KNEE WITH WINSTON DRESSING AND ICE PACK IN PLACE,PALPABLE PEDAL PULSES NOTED, SCD'S IN PLACE, [address] WITH IVF INFUSING ORDERED. WILL CONTINUE TO MONITOR.
[2018-06-04 12:45] LABS: ISTAT CREATININE 0.9 mg/dL (0.8-1.3); ISTAT HGB 13.3 g/dl (14.0-18.0); ISTAT IONIZED CALCIUM 1.14 mmol/L (1.03-1.32); ISTAT K 5.2 mmol/L (3.5-5.1); POC BUN/CREATININE RATIO 7.8 (5.4-32.0)
[2018-06-04] MEDS: meperidine/PF 25mg/ml syringe IV PRN ×2 (12:47→13:02)
[2018-06-04] MEDS: ROPIVAcaine 0.2%/PF PAIN PUMP 550 ML IJ SCH (13:01)
--- NOTE | 2018-06-04 13:57 | NUR ---
PATIENT TRANSFER CRITERIA MET, REPORT CALLED TO ERNESTINA OWEN ON ORTHO, ALL QUESTIONS AND CONCERNS ADDRESSED. VSS CHARTED, WINSTON DRESSING TO RIGHT KNEE CDI, ICE PACK NOTED, SCD'S IN PLACE, PIV 18 GAUGE INFUSING IVF. TRANSFERRED VIA ORTHO BED WITH ALL PERSONAL BELONGINGS.
[2018-06-04] MEDS: potassium cl 20mEq in 1/2 NS 1,000 ML IV SCH ×2 (14:34→14:44)
[2018-06-04] MEDS: ketorolac tromethamine 15mg/ml inj. IV SCH ×2 (14:34→20:32)
[2018-06-04] MEDS: gabapentin 300mg capsule PO SCH ×2 (14:35→20:31)
[2018-06-04] MEDS: acetaminophen 325mg tablet PO SCH ×2 (14:41→20:32)
[2018-06-04] MEDS: ceFAZolin 1GM/D5W- ADD-VANTAGE 50 ML IV SCH (15:45)
[2018-06-04] MEDS: oxyCODONE IR 5mg (immed. release) tablet PO PRN ×2 (16:55→21:15)
[2018-06-04] MEDS: cyclobenzaprine 10mg tablet PO PRN (17:16)
--- NOTE | 2018-06-04 17:57 | NUR ---
Joint replacement consult: Pt seen by SANDI for written/verbal high protein ed. RD reviewed high protein needs for wound healing, immune strength, high protein foods, and protein supplementation options. Pt agrees to double proteins, 2 milks, and 2 pepsis TIDWM on regular diet; dietary notified. Pt has own seasoning packets from home at bedside. Addendum: 06/04/18 at [address] Amended: Links added.
--- NOTE | 2018-06-04 18:20 | NUR ---
Problems reprioritized. Patient report given, questions answered & plan of care reviewed with LEXIE Carrillo.
[2018-06-04] MEDS ORDERED: vancomycin/NS 1 GM ADD-VANTAGE 250 ML IV SCH (20:00)
[2018-06-04] MEDS: sennosides 8.6mg tablet PO SCH (20:30)
[2018-06-05] MEDS: ceFAZolin 1GM/D5W- ADD-VANTAGE 50 ML IV SCH (00:30)
[2018-06-05] MEDS: potassium cl 20mEq in 1/2 NS 1,000 ML IV SCH ×2 (00:33→19:55)
[2018-06-05] MEDS: acetaminophen 325mg tablet PO SCH ×4 (01:56→22:15)
[2018-06-05] MEDS: ketorolac tromethamine 15mg/ml inj. IV SCH ×2 (01:56→07:44)
[2018-06-05] MEDS: oxyCODONE IR 5mg (immed. release) tablet PO PRN ×6 (01:56→22:42)
[2018-06-05 02:00] VITALS: BP 123/72
[2018-06-05 05:00] VITALS: BP 124/80
--- NOTE | 2018-06-05 05:31 | NUR ---
Lin catheter removed per SCIP protocol. Patient tolerated well. Pt verbalized understanding for education provided for use of urinal provided at bedside. Call light within reach, will continue to monitor.
--- NOTE | 2018-06-05 06:13 | NUR ---
Report given to Odalys OWEN. Addendum: 06/05/18 at 0658 by Lorena Perez RN Report was given to Julianne OWEN, not Odalys OWEN.
[2018-06-05 06:34] LABS: BASOPHILS % (AUTO) 0.3 % (0-1); EOSINOPHILS % (AUTO) 0.1 % (0-6); HEMATOCRIT 32.7 % (42.0-52.0); HEMOGLOBIN 11.1 g/dl (14.0-17.9); LYMPHOCYTES # (AUTO) 0.9 X10'3 (1.1-4.8); LYMPHOCYTES % (AUTO) 8.5 % (21-51); MEAN CORPUSCULAR HEMOGLOBIN 35.7 PG (27.0-31.0); MEAN CORPUSCULAR HGB CONC 33.9 g/dL (33.0-36.5); MEAN CORPUSCULAR VOLUME 105.4 FL (78-98); MEAN PLATELET VOLUME 8.4 FL (7.4-10.4); MONOCYTES # (AUTO) 0.8 X10'3 (0-0.9); MONOCYTES % (AUTO) 7.8 % (2-12); NEUTROPHILS # (AUTO) 8.9 X10'3 (1.8-7.7); NEUTROPHILS % (AUTO) 83.3 % (42-75); PLATELET COUNT 228 X10'3 (140-440); RED CELL DISTRIBUTION WIDTH 13.8 % (11.5-14.5); WHITE BLOOD COUNT 10.7 X10'3 (4.5-11.0)
[2018-06-05 06:54] LABS: ANION GAP 10 (8-16); CHLORIDE 103 MMOL/L (99-107); SODIUM 137 MMOL/L (135-145); TOTAL CARBON DIOXIDE 23.9 MMOL/L (24-32)
[2018-06-05] MEDS: HYDROmorphone 1 mg/ml syringe IV PRN ×4 (07:44→20:25)
[2018-06-05] MEDS: pantoprazole 40mg Tablet.DR PO SCH (07:44)
[2018-06-05] MEDS: gabapentin 300mg capsule PO SCH ×3 (07:45→22:15)
[2018-06-05] MEDS: duloxetine 30mg CAPSULE.DR PO SCH (07:45)
[2018-06-05] MEDS: aspirin 325mg tablet PO SCH (07:48)
--- NOTE | 2018-06-05 08:01 | NUR ---
sore throat Addendum: 06/05/18 at 0803 by Octavia MONCADA Amended: Links added.
[2018-06-05] MEDS: amLODIPine 5mg tablet PO SCH (08:08)
[2018-06-05 10:00] VITALS: BP 140/85
[2018-06-05 14:00] VITALS: BP 140/71
[2018-06-05 18:00] VITALS: BP 142/85
--- NOTE | 2018-06-05 18:48 | NUR ---
Student documentation: I have reviewed and agree with all interventions, assessments performed and documented by Octavia ROBERTS. Student Medication Administration: For this medication-pass time frame, all medication were reviewed, dispensed, administered and documented per hospital policy by Octavia ROBERTS.
[2018-06-05] MEDS: sennosides 8.6mg tablet PO SCH (21:00)
[2018-06-05 22:00] VITALS: BP 131/80
[2018-06-05] MEDS: celeCOXIB 100mg capsule PO SCH (22:14)
[2018-06-05] MEDS: cyclobenzaprine 10mg tablet PO PRN (22:40)
[2018-06-06] MEDS: HYDROmorphone 1 mg/ml syringe IV PRN ×6 (00:51→23:51)
[2018-06-06] MEDS: oxyCODONE IR 5mg (immed. release) tablet PO PRN ×5 (02:58→21:07)
[2018-06-06] MEDS: acetaminophen 325mg tablet PO SCH ×2 (02:59→07:42)
[2018-06-06] MEDS: potassium cl 20mEq in 1/2 NS 1,000 ML IV SCH (03:55)
[2018-06-06 06:00] VITALS: BP 105/63
[2018-06-06 06:06] LABS: BASOPHILS % (AUTO) 0.4 % (0-1); EOSINOPHILS # (AUTO) 0.1 X10'3 (0-0.9); EOSINOPHILS % (AUTO) 1.2 % (0-6); HEMATOCRIT 30.1 % (42.0-52.0); HEMOGLOBIN 10.3 g/dl (14.0-17.9); LYMPHOCYTES % (AUTO) 29.4 % (21-51); MEAN CORPUSCULAR HEMOGLOBIN 35.9 PG (27.0-31.0); MEAN CORPUSCULAR HGB CONC 34.3 g/dL (33.0-36.5); MEAN CORPUSCULAR VOLUME 104.6 FL (78-98); MEAN PLATELET VOLUME 8.4 FL (7.4-10.4); MONOCYTES # (AUTO) 0.6 X10'3 (0-0.9); MONOCYTES % (AUTO) 9.1 % (2-12); NEUTROPHILS % (AUTO) 59.9 % (42-75); PLATELET COUNT 198 X10'3 (140-440); RED BLOOD COUNT 2.88 X10'6 (4.70-6.10); RED CELL DISTRIBUTION WIDTH 13.9 % (11.5-14.5); WHITE BLOOD COUNT 6.7 X10'3 (4.5-11.0)
[2018-06-06] MEDS: aspirin 325mg tablet PO SCH (07:42)
[2018-06-06] MEDS: pantoprazole 40mg Tablet.DR PO SCH (07:42)
[2018-06-06] MEDS: gabapentin 300mg capsule PO SCH ×3 (07:42→19:53)
[2018-06-06] MEDS: duloxetine 30mg CAPSULE.DR PO SCH (07:43)
[2018-06-06] MEDS: celeCOXIB 100mg capsule PO SCH ×2 (07:43→19:53)
[2018-06-06] MEDS: amLODIPine 5mg tablet PO SCH (07:43)
[2018-06-06] MEDS: cyclobenzaprine 10mg tablet PO PRN (07:56)
[2018-06-06 10:00] VITALS: BP 122/66
[2018-06-06] MEDS: ROPIVAcaine 0.2%/PF PAIN PUMP 550 ML IJ SCH (10:21)
[2018-06-06] MEDS ORDERED: ASPI-1 PO (10:24)
[2018-06-06] MEDS ORDERED: acetaminophen 325mg tablet PO PRN (11:55)
[2018-06-06 18:00] VITALS: BP 132/81
--- NOTE | 2018-06-06 18:25 | NUR ---
Problems reprioritized. Patient report given, questions answered & plan of care reviewed with Jd OWEN.
--- NOTE | 2018-06-06 19:00 | NUR ---
Patient in room ORTHO 4022. I have received report from Jennifer OWEN and had the opportunity to ask questions and assume patient care.
[2018-06-06] MEDS: sennosides 8.6mg tablet PO SCH (21:00)
[2018-06-06 22:00] VITALS: BP 141/73
--- NOTE | 2018-06-06 22:30 | NUR ---
The swelling on Pt knee seems to be increasing, its cool to the touch and around joint capsule there feels like a pocket of fluid. CSM's on right foot are within normal limits, cap refill less than 2 seconds, 3+ pedal pulse and the foot is warm. Gatched the bed and elevated knee above heart, polar care full of ice. will continue to monitor.
[2018-06-07] MEDS: oxyCODONE IR 5mg (immed. release) tablet PO PRN ×6 (01:41→22:59)
[2018-06-07] MEDS: HYDROmorphone 1 mg/ml syringe IV PRN ×5 (04:24→21:15)
--- NOTE | 2018-06-07 05:09 | NUR ---
Bupivicaine pump empty and was discontinued, catheter tip intact.
[2018-06-07 06:00] VITALS: BP 140/93
[2018-06-07 06:07] LABS: BASOPHILS % (AUTO) 0.6 % (0-1); EOSINOPHILS # (AUTO) 0.1 X10'3 (0-0.9); EOSINOPHILS % (AUTO) 1.6 % (0-6); HEMATOCRIT 28.4 % (42.0-52.0); LYMPHOCYTES % (AUTO) 32.6 % (21-51); MEAN CORPUSCULAR HEMOGLOBIN 36.8 PG (27.0-31.0); MEAN CORPUSCULAR HGB CONC 35.2 g/dL (33.0-36.5); MEAN CORPUSCULAR VOLUME 104.3 FL (78-98); MEAN PLATELET VOLUME 8.6 FL (7.4-10.4); MONOCYTES # (AUTO) 0.7 X10'3 (0-0.9); MONOCYTES % (AUTO) 10.8 % (2-12); NEUTROPHILS # (AUTO) 3.3 X10'3 (1.8-7.7); NEUTROPHILS % (AUTO) 54.4 % (42-75); PLATELET COUNT 210 X10'3 (140-440); RED BLOOD COUNT 2.72 X10'6 (4.70-6.10); RED CELL DISTRIBUTION WIDTH 13.7 % (11.5-14.5); WHITE BLOOD COUNT 6.1 X10'3 (4.5-11.0)
--- NOTE | 2018-06-07 06:15 | NUR ---
Problems reprioritized. Patient report given, questions answered & plan of care reviewed with Jennifer OWEN.
--- NOTE | 2018-06-07 06:30 | NUR ---
Patient in room ORTHO 4022. I have received report from Jd OWEN and had the opportunity to ask questions and assume patient care.
[2018-06-07] MEDS: amLODIPine 5mg tablet PO SCH (08:46)
[2018-06-07] MEDS: celeCOXIB 100mg capsule PO SCH ×2 (08:46→21:16)
[2018-06-07] MEDS: gabapentin 300mg capsule PO SCH ×3 (08:46→21:16)
[2018-06-07] MEDS: duloxetine 30mg CAPSULE.DR PO SCH (08:46)
[2018-06-07] MEDS: aspirin 325mg tablet PO SCH (08:46)
[2018-06-07] MEDS: pantoprazole 40mg Tablet.DR PO SCH (08:46)
[2018-06-07 10:00] VITALS: BP 129/71
[2018-06-07] MEDS: cyclobenzaprine 10mg tablet PO PRN (10:09)
[2018-06-07 18:00] VITALS: BP 134/89
[2018-06-07] MEDS: sennosides 8.6mg tablet PO SCH (21:00)
[2018-06-07 22:00] VITALS: BP 123/76
--- NOTE | 2018-06-08 00:07 | NUR ---
really the right knee Addendum: 06/08/18 at 0008 by Ralph Madrid RN Amended: Links added.
[2018-06-08] MEDS: HYDROmorphone 1 mg/ml syringe IV PRN ×2 (01:33→05:15)
[2018-06-08 06:00] VITALS: BP 125/83
--- NOTE | 2018-06-08 06:15 | NUR ---
Patient in room ORTHO 4022. I have received report from Jd OWEN and had the opportunity to ask questions and assume patient care.
[2018-06-08] MEDS: pantoprazole 40mg Tablet.DR PO SCH (07:54)
[2018-06-08] MEDS: aspirin 325mg tablet PO SCH (07:54)
[2018-06-08] MEDS: amLODIPine 5mg tablet PO SCH (07:54)
[2018-06-08] MEDS: celeCOXIB 100mg capsule PO SCH ×2 (07:54→20:19)
[2018-06-08] MEDS: duloxetine 30mg CAPSULE.DR PO SCH (07:54)
[2018-06-08] MEDS: gabapentin 300mg capsule PO SCH ×3 (07:54→20:19)
[2018-06-08] MEDS: oxyCODONE IR 5mg (immed. release) tablet PO PRN ×4 (07:55→20:17)
[2018-06-08] MEDS: ROPIVAcaine 0.2%/PF PAIN PUMP 550 ML IJ SCH (10:21)
[2018-06-08 18:00] VITALS: BP 120/76
--- NOTE | 2018-06-08 18:20 | NUR ---
Problems reprioritized. Patient report given, questions answered & plan of care reviewed with Elvia OWEN.
--- NOTE | 2018-06-08 19:00 | NUR ---
Patient in room ORTHO 4022. I have received report from Elvia Reyes RN and had the opportunity to ask questions and assume patient care.
[2018-06-08] MEDS: cyclobenzaprine 10mg tablet PO PRN (20:22)
[2018-06-08] MEDS: sennosides 8.6mg tablet PO SCH (21:00)
[2018-06-08 22:00] VITALS: BP 131/80
[2018-06-09] MEDS: oxyCODONE IR 5mg (immed. release) tablet PO PRN ×3 (00:17→09:09)
[2018-06-09 06:00] VITALS: BP 129/76
[2018-06-09] MEDS: pantoprazole 40mg Tablet.DR PO SCH (09:10)
[2018-06-09] MEDS: duloxetine 30mg CAPSULE.DR PO SCH (09:10)
[2018-06-09] MEDS: celeCOXIB 100mg capsule PO SCH (09:10)
[2018-06-09] MEDS: cyclobenzaprine 10mg tablet PO PRN (09:11)
[2018-06-09] MEDS: aspirin 325mg tablet PO SCH (09:11)
[2018-06-09] MEDS: amLODIPine 5mg tablet PO SCH (09:11)
[2018-06-09] MEDS: gabapentin 300mg capsule PO SCH (09:11)
[2018-06-09 10:00] VITALS: BP 127/71
--- NOTE | 2018-06-09 11:15 | NUR ---
Powder packs given to patient. Knee pad from [facility] given to patient. Refused polar care delivery, states he thinks he still has one in the garage at home.
== END 2018-06-09 11:20 | disposition home health service (06) | DRG 302 ==
LOC: PAS IN 05:59 → EDSTATUS 08:30 → ORTHO 4S 14:10
PROVIDERS: ADMIT Orthopaedic Surgery; ATTEND Orthopaedic Surgery
PROC: 0SPC0JZ Removal of Synthetic Substitute from Right Knee Joint, Open Approach (ICD-10-PCS; 2018-06-04)
PROC: 3E0T3BZ Introduction of Anesthetic Agent into Peripheral Nerves and Plexi, Percutaneous Approach (ICD-10-PCS; 2018-06-04)
PROC: 8E0Y0CZ Robotic Assisted Procedure of Lower Extremity, Open Approach (ICD-10-PCS; 2018-06-04)
PROC: 8E0YXBZ Computer Assisted Procedure of Lower Extremity (ICD-10-PCS; 2018-06-04)
PROC: 0SRC0J9 Replacement of Right Knee Joint with Synthetic Substitute, Cemented, Open Approach (ICD-10-PCS; principal; 2018-06-04 08:00)
DX: M24.661 Ankylosis, right knee (principal); D62 Acute posthemorrhagic anemia; I10 Essential (primary) hypertension; K21.9 Gastro-esophageal reflux disease without esophagitis; L91.0 Hypertrophic scar; M21.161 Varus deformity, not elsewhere classified, right knee; F32.9 Major depressive disorder, single episode, unspecified; F41.9 Anxiety disorder, unspecified; Z79.899 Other long term (current) drug therapy
CPT/HCPCS: 36415; 80047; 80051; 80053; 82948; 85025; 87070; 87075; 87176; 97110; 97116; 97162; 97530; A7000; A9272; C1713; C1758; C1776; G0378; J0330; J0690; J1100; J1170; J1200; J1885; J1940; J2175; J2250; J2274; J2405; J2704; J2795; J3010; J3370; J3490; J7030; J7120

== ENCOUNTER 2021-04-12 11:07 | Emergency (ER) | payer MEDICAID ==
[~2021-04-12] VITALS: Ht 188 cm; Wt 120.5 kg
[~2021-04-12 11:07] MED LIST changes: +ASPI-1 PO; -DULO60CA64 PO; +DULO60CA65 PO; -OMEP20CA10 PO; +OMEP20CA15 PO; -ceFAZolin inj. 3,000 MG in normal saline 100ml IV soln 100 ML IV ONE; -famotidine 20mg tablet PO ONE; -ringers solution, lacted 1,000 ML IV SCH; -vancomycin inj 1,500 MG in normal saline 300ml IV soln IV ONE
[2021-04-12 11:20] VITALS: BP 162/100
--- NOTE | 2021-04-12 13:05 | NUR ---
PT CO COUGH CAUSING HIM TO FEEL VERY ANXIOUS AND LIGHT HEADED. DISCUSSED PT SXS WITH MD YOUNG AND RECEIVED VO FOR EKG, X-RAY AND TO GIVE BENADRYL 50MG PO X 1 NOW
[2021-04-12] MEDS ORDERED: diphenhydrAMINE 25mg capsule PO ONE (13:10)
[2021-04-12] MEDS ORDERED: iohexol 350MG/ML 100ml bottle IV ONE (16:01)
[2021-04-12] MEDS ORDERED: BENZ-38 PO (18:25)
== END 2021-04-12 18:41 | disposition home or self-care (01) ==
LOC: ER 11:07
DX: K44.9 Diaphragmatic hernia without obstruction or gangrene (principal); R05.9 Cough, unspecified; R06.02 Shortness of breath; K21.9 Gastro-esophageal reflux disease without esophagitis; I10 Essential (primary) hypertension; Z79.82 Long term (current) use of aspirin; Z79.899 Other long term (current) drug therapy; Z86.16 Personal history of COVID-19
CPT/HCPCS: 71045; 71275; 93005; 99285; Q0163; Q9967

== ENCOUNTER 2023-09-30 07:23 | Outpatient (CLI) | payer MEDICAID | END 2023-09-30 23:59 | disposition home or self-care (01) | LOC: MRI 07:23 | PROVIDERS: ATTEND Orthopaedic Surgery | DX: M75.102 Unspecified rotator cuff tear or rupture of left shoulder, not specified as traumatic (principal); M75.82 Other shoulder lesions, left shoulder; M19.012 Primary osteoarthritis, left shoulder; M25.512 Pain in left shoulder | CPT/HCPCS: 73221 ==